=== PATIENT | female | born 1935 | race Caucasian/White ===

== ENCOUNTER 2017-01-09 15:50 | Inpatient (IN) | payer OTHER, MEDICAID ==
[2017-01-09] MEDS ORDERED: NS 1/2 1000 ML IV 1,000 ML IV ONE (17:26)
[2017-01-09] MEDS ORDERED: SALINE 3% 15 ML NEB TX ONE (17:51)
[2017-01-09 17:54] LABS: BASOPHILS # (AUTO) 0.1 X10^3/uL (0.0-0.1); BASOPHILS % (AUTO) 0.8 % (0.2-1.0); EOSINOPHILS # (AUTO) 0.3 x10^3/uL (0.0-0.2); EOSINOPHILS % (AUTO) 5.3 % (0.9-2.9); HEMOGLOBIN 10.4 g/dL (12.0-16.0); LYMPHOCYTES % (AUTO) 31.1 % (21.0-51.0); MEAN CORPUSCULAR HEMOGLOBIN 26.8 pg (27.0-34.0); MEAN CORPUSCULAR HGB CONC 32.5 g/dL (33.0-35.0); MEAN CORPUSCULAR VOLUME 82.4 fL (80.0-100.0); MEAN PLATELET VOLUME 9.6 fL (7.4-11.0); MONOCYTES # (AUTO) 0.7 x10^3/uL (0.3-0.8); MONOCYTES % (AUTO) 11.2 % (0.0-13.0); NEUTROPHILS # (AUTO) 3.4 x10^3/uL (2.2-4.8); NEUTROPHILS % (AUTO) 51.6 % (42.0-75.0); PLATELET COUNT 187 X10^3/uL (150.0-450.0); RED BLOOD COUNT 3.89 X10^6/uL (3.5-5.4); RED CELL DISTRIBUTION WIDTH 14.3 % (11.6-16.5); WHITE BLOOD COUNT 6.5 X10^3/uL (3.6-10.0)
[2017-01-09 18:00] VITALS: BMI 29.0
[2017-01-09] MEDS ORDERED: NS 1/2 1000 ML IV 1,000 ML IV SCH (18:00)
[2017-01-09 18:09] LABS: ALANINE AMINOTRANSFERASE 15 Units/L (12-78); ALBUMIN 3.4 g/dL (3.4-5.0); ALKALINE PHOSPHATASE 56 Units/L (46-116); ASPARTATE AMINO TRANSFERASE 15 Units/L (15-37); BLOOD UREA NITROGEN 25 mg/dL (7-18); CALCIUM 8.6 mg/dL (8.5-10.1); CARBON DIOXIDE 28.9 mmol/L (21-32); CHLORIDE 106 mmol/L (98-107); CREATININE 1.22 mg/dL (0.55-1.02); GLUCOSE 92 mg/dL (65-99); SODIUM 144 mmol/L (136-145); TOTAL PROTEIN 7.1 g/dL (6.4-8.2); eGFR BLACK RACES 55 (>60); eGFR NON BLACK RACES 45 (>60)
[2017-01-09] MEDS ORDERED: SALINE 3% 15 ML NEB TX NEB ONE (18:19)
[2017-01-09] MEDS: ROBITUSSIN DM PO SCH ×2 (18:35→21:15)
[2017-01-09] MEDS: NS 1/2 1000 ML IV 1,000 ML IV SCH (18:36)
[2017-01-09] MEDS: LEVAQUIN PREMIX IV 750 MG 750 MG/150 ML BAG IV SCH (18:36)
[2017-01-09] MEDS: LASIX IVP SCH (18:36)
[2017-01-09] MEDS: TUSSIONEX PENNKINETIC SUSP PO SCH (18:36)
--- NOTE | 2017-01-09 19:01 | RAD ---
History: Pneumonia Study: PA and lateral chest Comparison: December 24, 2015. Findings: There is mild cardiomegaly with a very tortuous ascending and descending thoracic aorta, s tatus post coronary artery bypass grafting surgery which is old. The costophrenic angles are mildly blunted. There is atelectasis and or consolidation in the right middle lobe. Impression: 1. Right middle lobe atelectasis and or consolidation 2. Cardiomegaly and a markedly tortuous aorta with small pleural effusions Reported By:
[2017-01-09] MEDS ORDERED: RESTORIL CAP 15 MG PO PRN (19:12)
[2017-01-09 20:21] LABS: BILIRUBIN,URINE NEGATIVE (NEGATIVE); BLOOD/HEMOGLOBIN,URINE NEGATIVE (NEGATIVE); GLUCOSE, URINE NEGATIVE (NEGATIVE); KETONES,URINE NEGATIVE (NEGATIVE); LEUKOCYTE ESTERASE ,URINE NEGATIVE (NEGATIVE); NITRITES,URINE NEGATIVE (NEGATIVE); PROTEIN,URINE NEGATIVE (NEGATIVE); UROBILINOGEN,URINE NORMAL (NORMAL)
[2017-01-09 20:32] LABS: APPEARANCE,URINE CLEAR (CLEAR); BACTERIA,URINE TRACE /HPF (NEGATIVE); COLOR,URINE PALE YELLOW (YELLOW); RBC,URINE 0-2 /HPF (NEGATIVE); SQUAMOUS EPITHELIAL CELL,UR RARE /HPF (NEGATIVE)
[2017-01-09 20:33] LABS: MUCUS,URINE RARE /HPF (NEGATIVE)
[2017-01-09] MEDS: COREG TAB 12.5 MG PO SCH (21:15)
[2017-01-09] MEDS: DIOVAN TAB 80 MG PO SCH (21:15)
[2017-01-09] MEDS: ZOCOR TAB 10 MG PO SCH (21:15)
[2017-01-09] MEDS: XOPENEX 1.25 MG/3 ML NEBULE NEB SCH (21:50)
[2017-01-10 05:30] LABS: ALANINE AMINOTRANSFERASE 13 Units/L (12-78); ALBUMIN 2.8 g/dL (3.4-5.0); ALKALINE PHOSPHATASE 49 Units/L (46-116); ASPARTATE AMINO TRANSFERASE 18 Units/L (15-37); BLOOD UREA NITROGEN 26 mg/dL (7-18); CALCIUM 8.3 mg/dL (8.5-10.1); CARBON DIOXIDE 28.5 mmol/L (21-32); CHLORIDE 106 mmol/L (98-107); COR CA(FOR HYPOALB) 9.3 mg/dL (8.5-10.1); GLUCOSE 84 mg/dL (65-99); SODIUM 142 mmol/L (136-145); TOTAL PROTEIN 6.3 g/dL (6.4-8.2); eGFR BLACK RACES 56 (>60); eGFR NON BLACK RACES 46 (>60)
[2017-01-10 05:37] LABS: BASOPHILS # (AUTO) 0.1 X10^3/uL (0.0-0.1); BASOPHILS % (AUTO) 0.7 % (0.2-1.0); EOSINOPHILS # (AUTO) 0.5 x10^3/uL (0.0-0.2); EOSINOPHILS % (AUTO) 6.8 % (0.9-2.9); HEMATOCRIT 29.2 % (36.0-47.0); HEMOGLOBIN 9.6 g/dL (12.0-16.0); LYMPHOCYTES # (AUTO) 2.5 X10^3/uL (1.3-2.9); LYMPHOCYTES % (AUTO) 34.9 % (21.0-51.0); MEAN CORPUSCULAR HEMOGLOBIN 27.4 pg (27.0-34.0); MEAN CORPUSCULAR HGB CONC 32.7 g/dL (33.0-35.0); MONOCYTES % (AUTO) 13.3 % (0.0-13.0); NEUTROPHILS # (AUTO) 3.2 x10^3/uL (2.2-4.8); NEUTROPHILS % (AUTO) 44.3 % (42.0-75.0); PLATELET COUNT 162 X10^3/uL (150.0-450.0); RED BLOOD COUNT 3.48 X10^6/uL (3.5-5.4); RED CELL DISTRIBUTION WIDTH 14.4 % (11.6-16.5)
[2017-01-10] MEDS: LASIX IVP SCH (05:54)
[2017-01-10] MEDS: TUSSIONEX PENNKINETIC SUSP PO SCH ×2 (05:54→18:27)
[2017-01-10 06:13] LABS: PLATELET MORPHOLOGY COMMENT NORMAL (NORMAL)
--- NOTE | 2017-01-10 06:48 | RAD ---
HISTORY: Follow up pneumonia Study: Chest one view Comparison: January 09, 2017 Findings: The patient is status post median sternotomy and CABG. The heart is enlarged. The aorta is ectatic. The lungs are generally hyperinflated and appear free of acute infiltrates. However it should be not ed that the atelectasis/consolidation visualized in the right middle lobe on the prior examination i s only visible on the lateral view. No pleural effusions are identified. The bony thorax is intact. IMPRESSION: Cardiomegaly without congestive heart failure No definite infiltrates identified however it should be noted that the right middle lobe process matias cribed on the prior examination is visualized only on the lateral view. Lateral view will be require d for comparison with the prior examination. Reported By:
[2017-01-10] MEDS: XOPENEX 1.25 MG/3 ML NEBULE NEB SCH ×4 (09:08→21:48)
[2017-01-10] MEDS: ASPIRIN EC 81 MG PO SCH (09:24)
[2017-01-10] MEDS: FOLIC ACID TAB 1 MG PO SCH (09:24)
[2017-01-10] MEDS: PLAVIX PO SCH (09:24)
[2017-01-10] MEDS: K-DUR TAB 20 MEQ PO SCH (09:25)
[2017-01-10] MEDS: COREG TAB 12.5 MG PO SCH ×2 (09:25→20:39)
[2017-01-10] MEDS: PROTONIX TAB 40 MG PO SCH (09:25)
[2017-01-10] MEDS: ROBITUSSIN DM PO SCH ×4 (09:26→20:40)
[2017-01-10] MEDS: DIOVAN TAB 80 MG PO SCH ×2 (09:26→20:39)
[2017-01-10] MEDS ORDERED: ANTIVERT TAB 25 MG PO PRN (09:49)
[2017-01-10] MEDS ORDERED: ANTIVERT TAB 25 MG PO ONE (09:50)
--- NOTE | 2017-01-10 14:07 | DR.UPDATE ---
H&P Update History and Physical Update: HISTORY AND PHYSICAL UPDATE FOR ADMISSION 01/09/17 MS. MERCADO'S H&P WAS COMPLETED IN OUR OFFICE PRIOR TO ADMISSION. SHE HAS BEEN SEEN AND EXAMINED WITH NO CHANGES NOTED.
--- NOTE | 2017-01-10 14:17 | PCM.PROG ---
Progress Note - Progress Note for Day of Date: 01/10/17 - Subjective Subjective: PATIENT RESTS IN BED AND REPORTS SHORTNESS OF BREATH IS SLIGHTLY IMPROVED TODAY. SHE CONTINUES ON SUPPLEMENTAL OXYGEN. SHE REPORTS A COUGH THAT IS NON-PRODUCTIVE, PERSISTENT. SHE REPORTS DIZZINESS AND NAUSEA THIS MORNING. CBC WNL EXCEPT: H/H 9.6/29.2. CMP WNL EXCEPT: BUN/CREAT 26/1.20, GFR 46, CALCIUM 8.3, TOT PROTEIN 6.3, ALBUMIN 2.8. URINALYSIS WNL. PA AND LAT CHEST XRAY YESTERDAY REPORTED RIGHT MIDDLE LOBE ATELECTASIS AND OR CONSOLIDATION ; CARDIOMEGALY AND A MARKEDLY TORTUOUS AORTA WITH SMALL PLEURAL EFFUSIONS. WE WILL CONTINUE WITH CURRENT TREATMENT, START MECLIZINE, AND FOLLOW UP WITH LABS AND PA AND LAT CHEST XRAY IN AM. - Past Medical Family Social History Past Med/Fam/Surg Hx: No changes since H&P Allergies: Allergies No Known Drug Allergy Allergy (Verified 03/30/16 11:12) - Review of Systems ROS: No change since H&P - Vital Signs and I&O's Vital Signs: Temperature 97.7 F Pulse Rate [Left Radial] 62 Pulse Rate 63 Respiratory Rate 19 Blood Pressure [Right Arm] 112/55 Blood Pressure [Left Arm] 141/45 Blood Pressure 112/55 O2 Sat by Pulse Oximetry 96 Intake and Output: Intake & Output 01/08/17 01/09/17 01/10/17 01/11/17 11:59 11:59 11:59 11:59 Intake Total 568 Output Total 600 Balance -32 - Physical Exam Oriented: Normal, Time, Person, Place Eyes: Normal. negative: Blurred Vision, Diplopia, Discharge, Pain, Redness, Photophobia Ear: Normal. negative: Swelling, Ecchymosis, Hemotypanum, Abrasion, Laceration Nose: Normal. negative: Injected, Discharge, Blood Throat: Red, Dry. negative: Tonsillar Hypertrophy, Exudate Respiratory: Generalized, Wheezes Cardiovascular: Normal. negative: Murmur, Edema : Normal. negative: Dysuria, Hematuria, Frequency, Discharge, Bleeding, Auscultation: Bowel Sounds: Decreased. negative: Bruit Palpation: Normal. negative: Spleen Enlarged, Liver Enlarged, Mass Pulsatile Tenderness: Normal. negative: Rebound, Guarding, Rigidity Skin: Normal. negative: Diaphoresis, Wound, Bruising, Ecchymosis Musculoskeletal: Instability Psychiatric: Normal Mood Description: Calm, Appropriate Affect: Normal Speech Pattern: Clear, Appropriate - Laboratory and Diagnostics Result Diagrams: 01/10/17 03:35 01/10/17 03:35 Labs: Laboratory WBC 8.0 X10^3/uL (3.6-10.0) 01/10/17 03:35 RBC 3.48 X10^6/uL (3.5-5.4) L 01/10/17 03:35 Hgb 9.6 g/dL (12.0-16.0) L 01/10/17 03:35 Hct 29.2 % (36.0-47.0) L 01/10/17 03:35 MCV 84.0 fL (80.0-100.0) 01/10/17 03:35 MCH 27.4 pg (27.0-34.0) 01/10/17 03:35 MCHC 32.7 g/dL (33.0-35.0) L 01/10/17 03:35 RDW 14.4 % (11.6-16.5) 01/10/17 03:35 Plt Count 162 X10^3/uL (150.0-450.0) 01/10/17 03:35 Plt Count Comment Adequate (ADEQUATE) 01/10/17 03:35 MPV 10.0 fL (7.4-11.0) 01/10/17 03:35 Neut % 44.3 % (42.0-75.0) 01/10/17 03:35 Lymph % 34.9 % (21.0-51.0) 01/10/17 03:35 [place] % 13.3 % (0.0-13.0) H 01/10/17 03:35 Eos % 6.8 % (0.9-2.9) H 01/10/17 03:35 Baso % 0.7 % (0.2-1.0) 01/10/17 03:35 Neut # 3.2 x10^3/uL (2.2-4.8) 01/10/17 03:35 Lymph # 2.5 X10^3/uL (1.3-2.9) 01/10/17 03:35 [place] # 1.0 x10^3/uL (0.3-0.8) H 01/10/17 03:35 Eos # 0.5 x10^3/uL (0.0-0.2) H 01/10/17 03:35 Baso # 0.1 X10^3/uL (0.0-0.1) 01/10/17 03:35 Absolute Nucleated RBC 0.1 /100WBC 01/10/17 03:35 Plt Morphology Comment Normal (NORMAL) 01/10/17 03:35 RBC Morphology Normal (NORMAL) 01/10/17 03:35 Sodium 142 mmol/L (136-145) 01/10/17 03:35 Corrected Sodium TNP 01/10/17 03:35 Potassium 4.1 mmol/L (3.5-5.1) 01/10/17 03:35 Chloride 106 mmol/L (98-107) 01/10/17 03:35 Carbon Dioxide 28.5 mmol/L (21-32) 01/10/17 03:35 BUN 26 mg/dL (7-18) H 01/10/17 03:35 Creatinine 1.20 mg/dL (0.55-1.02) H 01/10/17 03:35 Est GFR (MDRD) Af Amer 56 (>60) L 01/10/17 03:35 Est GFR (MDRD) Non-Af 46 (>60) L 01/10/17 03:35 Glucose 84 mg/dL (65-99) 01/10/17 03:35 Calcium 8.3 mg/dL (8.5-10.1) L 01/10/17 03:35 Corrected Calcium 9.3 mg/dL (8.5-10.1) 01/10/17 03:35 Total Bilirubin 0.50 mg/dL (0.2-1.0) 01/10/17 03:35 AST 18 Units/L (15-37) 01/10/17 03:35 ALT 13 Units/L (12-78) 01/10/17 03:35 Alkaline Phosphatase 49 Units/L (46-116) 01/10/17 03:35 Total Protein 6.3 g/dL (6.4-8.2) L 01/10/17 03:35 Albumin 2.8 g/dL (3.4-5.0) L 01/10/17 03:35 Globulin 3.5 g/dL (2.5-4.5) 01/10/17 03:35 Albumin/Globulin Ratio 0.8 Ratio (1.1-2.1) L 01/10/17 03:35 Specimen Type Catherized urine 01/09/17 20:09 Urine Color Pale yellow (YELLOW) 01/09/17 20:09 Urine Appearance Clear (CLEAR) 01/09/17 20:09 Urine pH 7.0 (5.0 - 8.0) 01/09/17 20:09 Ur Specific [place] 1.010 (1.000-1.030) 01/09/17 20:09 Urine Protein Negative (NEGATIVE) 01/09/17 20:09 Urine Glucose (UA) Negative (NEGATIVE) 01/09/17 20:09 Urine Ketones Negative (NEGATIVE) 01/09/17 20:09 Urine Occult Blood Negative (NEGATIVE) 01/09/17 20:09 Urine Nitrite Negative (NEGATIVE) 01/09/17 20:09 Urine Bilirubin Negative (NEGATIVE) 01/09/17 20:09 Urine Urobilinogen Normal (NORMAL) 01/09/17 20:09 Ur Leukocyte Esterase Negative (NEGATIVE) 01/09/17 20:09 Urine RBC 0-2 /HPF (NEGATIVE) 01/09/17 20:09 Urine WBC 2-4 /HPF (NEGATIVE) 01/09/17 20:09 Ur Squamous Epith Cells Rare /HPF (NEGATIVE) 01/09/17 20:09 Urine Bacteria Trace /HPF (NEGATIVE) 01/09/17 20:09 Urine Mucus Rare /HPF (NEGATIVE) 01/09/17 20:09 Ur Culture Indicated? No/not indicated 01/09/17 20:09 - Plan (1) CHF exacerbation Status: Acute Qualifiers: Congestive heart failure type: C Plan: STRICT I&O'S, FLUID RESTRICT TO LESS THAN 1000MLS IN 24H, DAILY WEIGHT, MONITOR CHEST XRAY. (2) Bronchopneumonia Status: Acute Plan: CONTINUE IV LEVAQUIN, NEB TREATMENTS, MONITOR LABS AND CHEST XRAY. (3) CAD (coronary artery disease) Status: Chronic Qualifiers: Coronary Disease-Associated Artery/Lesion type: C [place] vs. transplanted heart: N Associated angina: A (4) CHF (congestive heart failure) Status: Chronic Qualifiers: Congestive heart failure type: C Congestive heart failure chronicity: C (5) History of [place] (myocardial infarction) Status: Chronic (6) History of anemia Status: Chronic (7) History of aortic aneurysm Status: Chronic (8) History of coronary artery bypass graft Status: Chronic (9) History of coronary artery stent placement Status: Chronic (10) Hyperlipidemia Status: Chronic Qualifiers: Hyperlipidemia type: H (11) Hypertension Status: Chronic Qualifiers: Hypertension type: essential hypertension Qualified Code(s): I10 - Essential (primary) hypertension
[2017-01-10] MEDS ORDERED: ZOFRAN INJ 4 MG VIAL IVP PRN (14:18)
[2017-01-10] MEDS: LEVAQUIN PREMIX IV 750 MG 750 MG/150 ML BAG IV SCH (17:02)
[2017-01-10] MEDS: NS 1/2 1000 ML IV 1,000 ML IV SCH (17:03)
[2017-01-10] MEDS ORDERED: NS 1/2 1000 ML IV 1,000 ML IV ONE (17:05)
[2017-01-10] MEDS: ZOCOR TAB 10 MG PO SCH (20:40)
[2017-01-11] MEDS: XOPENEX 1.25 MG/3 ML NEBULE NEB SCH ×5 (02:17→20:30)
[2017-01-11 04:08] LABS: BASOPHILS # (AUTO) 0.1 X10^3/uL (0.0-0.1); BASOPHILS % (AUTO) 0.8 % (0.2-1.0); EOSINOPHILS # (AUTO) 0.5 x10^3/uL (0.0-0.2); HEMATOCRIT 31.1 % (36.0-47.0); HEMOGLOBIN 10.1 g/dL (12.0-16.0); LYMPHOCYTES # (AUTO) 1.7 X10^3/uL (1.3-2.9); LYMPHOCYTES % (AUTO) 26.6 % (21.0-51.0); MEAN CORPUSCULAR HEMOGLOBIN 27.1 pg (27.0-34.0); MEAN CORPUSCULAR HGB CONC 32.6 g/dL (33.0-35.0); MEAN CORPUSCULAR VOLUME 83.1 fL (80.0-100.0); MEAN PLATELET VOLUME 9.5 fL (7.4-11.0); MONOCYTES # (AUTO) 0.8 x10^3/uL (0.3-0.8); NEUTROPHILS # (AUTO) 3.3 x10^3/uL (2.2-4.8); NEUTROPHILS % (AUTO) 51.6 % (42.0-75.0); PLATELET COUNT 181 X10^3/uL (150.0-450.0); RED BLOOD COUNT 3.74 X10^6/uL (3.5-5.4); RED CELL DISTRIBUTION WIDTH 14.4 % (11.6-16.5); WHITE BLOOD COUNT 6.5 X10^3/uL (3.6-10.0)
[2017-01-11 04:20] LABS: ALBUMIN 2.8 g/dL (3.4-5.0); ALKALINE PHOSPHATASE 51 Units/L (46-116); ASPARTATE AMINO TRANSFERASE 14 Units/L (15-37); BLOOD UREA NITROGEN 22 mg/dL (7-18); CALCIUM 8.2 mg/dL (8.5-10.1); CARBON DIOXIDE 27.8 mmol/L (21-32); COR CA(FOR HYPOALB) 9.2 mg/dL (8.5-10.1); CREATININE 1.26 mg/dL (0.55-1.02); GLUCOSE 109 mg/dL (65-99); TOTAL PROTEIN 6.5 g/dL (6.4-8.2); eGFR BLACK RACES 53 (>60); eGFR NON BLACK RACES 44 (>60)
[2017-01-11 04:46] LABS: ALANINE AMINOTRANSFERASE 15 Units/L (12-78)
[2017-01-11 05:03] LABS: CHLORIDE 105 mmol/L (98-107); SODIUM 142 mmol/L (136-145)
[2017-01-11] MEDS ORDERED: MORPHINE SULFATE INJ 2 MG ONE (05:31)
[2017-01-11] MEDS ORDERED: LASIX IVP ONE (05:31)
[2017-01-11] MEDS ORDERED: MORPHINE SULFATE INJ 2 MG IVP PRN (05:46)
[2017-01-11] MEDS ORDERED: LASIX IVP SCH (06:00)
[2017-01-11] MEDS: TUSSIONEX PENNKINETIC SUSP PO SCH ×2 (06:04→21:26)
--- NOTE | 2017-01-11 07:13 | RAD ---
HISTORY: Pneumonia, CHF, cough Study: Two-view chest Comparison: January 10, 2017 Findings: Cardiac monitoring electrodes are noted on the chest. There is again evidence of CABG with median st ernotomy sutures and metallic markers indicating coronary artery bypass grafts. The trachea is midli ne. There is cardiomegaly with aortic uncoiling. On the lateral view there is again evidence of atel ectasis of the right middle lobe. There is some fullness present in the right hilar region which may be vascular or may indicate adenopathy or mass. CT evaluation of the chest is recommended. The maria fernanda jefe of lung morfin and pleural spaces are clear. Osseous structures display no acute abnormality. IMPRESSION: Persistent atelectasis involving the right middle lobe with a fullness in the right hilar region whi ch may be vascular or may indicate adenopathy or mass. CT evaluation of the chest is encouraged. Reported By:
[2017-01-11] MEDS: ROBITUSSIN DM PO SCH ×4 (08:00→21:24)
[2017-01-11] MEDS: PROTONIX TAB 40 MG PO SCH (08:01)
[2017-01-11] MEDS: COREG TAB 12.5 MG PO SCH ×2 (08:01→21:24)
[2017-01-11] MEDS: K-DUR TAB 20 MEQ PO SCH (08:01)
[2017-01-11] MEDS: PLAVIX PO SCH (08:02)
[2017-01-11] MEDS: ASPIRIN EC 81 MG PO SCH (08:02)
[2017-01-11] MEDS: FOLIC ACID TAB 1 MG PO SCH (08:03)
[2017-01-11] MEDS: DIOVAN TAB 80 MG PO SCH ×2 (08:03→21:24)
[2017-01-11] MEDS ORDERED: PREDNISONE TAB 10 MG PO ONE (09:19)
[2017-01-11] MEDS ORDERED: PREDNISONE TAB 10 MG PO PRN (09:26)
[2017-01-11] MEDS: PREDNISONE TAB 5 MG PO SCH (11:42)
[2017-01-11] MEDS: SOLU-Medrol 40 MG VIAL IVP SCH ×4 (11:42→21:25)
[2017-01-11] MEDS: PROTONIX INJ 40 MG VIAL IVP SCH (11:42)
[2017-01-11] MEDS: PEPCID 20 MG IV PREMIX* 20 MG/50 ML BAG IV SCH ×2 (11:42→21:24)
--- NOTE | 2017-01-11 12:04 | PCM.PROG ---
Progress Note - Progress Note for Day of Date: 01/11/17 - Subjective Subjective: PATIENT RESTS IN BED AND REPORTS SHORTNESS OF BREATH. PATIENT HAD AN EPISODE OF RESPIRATORY DISTRESS EARLY THIS MORNING. AUDIBLE WHEEZING WAS NOTED AND AUSCULTATED BILATERALLY. PATIENT RECEIVED A STAT DOSE OF LASIX 40MG IV AND WILL RECEIVE ANOTHER DOSE TODAY. SHE CONTINUES ON SUPPLEMENTAL OXYGEN. SHE REPORTS A COUGH THAT IS NON-PRODUCTIVE, PERSISTENT. SHE REPORTS DIZZINESS AND NAUSEA THIS MORNING AFTER RECEIVING MORPHINE. WE WILL LIST MORPHINE AN ALLERGY. CBC WNL EXCEPT: H/H 10.1/31.1. CMP WNL EXCEPT: BUN/CREAT 22/.26, GFR 44, CALCIUM 8.2, ALBUMIN 2.8. URINALYSIS WNL. CHEST XRAY TODAY REPORTED PERSISTENT RIGHT MIDDLE LOBE ATELECTASIS. CHEST XRAY RECOMMENDS CHEST CT. WE WILL ORDER CT AND FOLLOW UP IN AM. WE WILL CONTINUE WITH CURRENT TREATMENT, CONTINUE MECLIZINE, AND FOLLOW UP WITH LABS IN AM. - Past Medical Family Social History Past Med/Fam/Surg Hx: No changes since H&P Allergies: Allergies Morphine Allergy (Verified 01/11/17 09:12) - Review of Systems ROS: No change since H&P - Vital Signs and I&O's Vital Signs: Temperature 97.9 F Pulse Rate [Left Radial] 71 Pulse Rate 83 Respiratory Rate 22 Blood Pressure [Right Arm] 112/55 Blood Pressure [Left Arm] 131/53 Blood Pressure 112/55 O2 Sat by Pulse Oximetry 94 Intake and Output: Intake & Output 01/08/17 01/09/17 01/10/17 01/11/17 11:59 11:59 11:59 11:59 Intake Total 568 1501 Output Total 600 2500 Balance -32 -999 - Physical Exam Oriented: Normal, Time, Person, Place Eyes: Normal. negative: Blurred Vision, Diplopia, Discharge, Pain, Redness, Photophobia Ear: Normal. negative: Swelling, Ecchymosis, Hemotypanum, Abrasion, Laceration Nose: Normal. negative: Injected, Discharge, Blood Throat: Red, Dry. negative: Tonsillar Hypertrophy, Exudate Respiratory: Generalized, Wheezes Cardiovascular: Normal. negative: Murmur, Edema : Normal. negative: Dysuria, Hematuria, Frequency, Discharge, Bleeding, Auscultation: Bowel Sounds: Decreased. negative: Bruit Palpation: Normal. negative: Spleen Enlarged, Liver Enlarged, Mass Pulsatile Tenderness: Normal. negative: Rebound, Guarding, Rigidity Skin: Normal. negative: Diaphoresis, Wound, Bruising, Ecchymosis Musculoskeletal: Instability Psychiatric: Normal Mood Description: Calm, Appropriate Affect: Normal Speech Pattern: Clear - Laboratory and Diagnostics Result Diagrams: 01/11/17 03:15 01/11/17 03:15 Labs: 01/09/17 17:41 Blood Blood Culture - Preliminary 01/09/17 17:41 Blood Blood Culture - Preliminary 01/11/17 01:30 Sputum - Expectorated Sputum - Final Laboratory WBC 6.5 X10^3/uL (3.6-10.0) 01/11/17 03:15 RBC 3.74 X10^6/uL (3.5-5.4) 01/11/17 03:15 Hgb 10.1 g/dL (12.0-16.0) L 01/11/17 03:15 Hct 31.1 % (36.0-47.0) L 01/11/17 03:15 MCV 83.1 fL (80.0-100.0) 01/11/17 03:15 MCH 27.1 pg (27.0-34.0) 01/11/17 03:15 MCHC 32.6 g/dL (33.0-35.0) L 01/11/17 03:15 RDW 14.4 % (11.6-16.5) 01/11/17 03:15 Plt Count 181 X10^3/uL (150.0-450.0) 01/11/17 03:15 Plt Count Comment Adequate (ADEQUATE) 01/10/17 03:35 MPV 9.5 fL (7.4-11.0) 01/11/17 03:15 Neut % 51.6 % (42.0-75.0) 01/11/17 03:15 Lymph % 26.6 % (21.0-51.0) 01/11/17 03:15 [place] % 13.0 % (0.0-13.0) 01/11/17 03:15 Eos % 8.0 % (0.9-2.9) H 01/11/17 03:15 Baso % 0.8 % (0.2-1.0) 01/11/17 03:15 Neut # 3.3 x10^3/uL (2.2-4.8) 01/11/17 03:15 Lymph # 1.7 X10^3/uL (1.3-2.9) 01/11/17 03:15 [place] # 0.8 x10^3/uL (0.3-0.8) 01/11/17 03:15 Eos # 0.5 x10^3/uL (0.0-0.2) H 01/11/17 03:15 Baso # 0.1 X10^3/uL (0.0-0.1) 01/11/17 03:15 Absolute Nucleated RBC 0.1 /100WBC 01/11/17 03:15 Plt Morphology Comment Normal (NORMAL) 01/10/17 03:35 RBC Morphology Normal (NORMAL) 01/10/17 03:35 Sodium 142 mmol/L (136-145) 01/11/17 03:15 Corrected Sodium TNP 01/11/17 03:15 Potassium 4.0 mmol/L (3.5-5.1) 01/11/17 03:15 Chloride 105 mmol/L (98-107) 01/11/17 03:15 Carbon Dioxide 27.8 mmol/L (21-32) 01/11/17 03:15 BUN 22 mg/dL (7-18) H 01/11/17 03:15 Creatinine 1.26 mg/dL (0.55-1.02) H 01/11/17 03:15 Est GFR (MDRD) Af Amer 53 (>60) L 01/11/17 03:15 Est GFR (MDRD) Non-Af 44 (>60) L 01/11/17 03:15 Glucose 109 mg/dL (65-99) H 01/11/17 03:15 Calcium 8.2 mg/dL (8.5-10.1) L 01/11/17 03:15 Corrected Calcium 9.2 mg/dL (8.5-10.1) 01/11/17 03:15 Total Bilirubin 0.30 mg/dL (0.2-1.0) 01/11/17 03:15 AST 14 Units/L (15-37) L 01/11/17 03:15 ALT 15 Units/L (12-78) 01/11/17 03:15 Alkaline Phosphatase 51 Units/L (46-116) 01/11/17 03:15 Total Protein 6.5 g/dL (6.4-8.2) 01/11/17 03:15 Albumin 2.8 g/dL (3.4-5.0) L 01/11/17 03:15 Globulin 3.7 g/dL (2.5-4.5) 01/11/17 03:15 Albumin/Globulin Ratio 0.8 Ratio (1.1-2.1) L 01/11/17 03:15 Specimen Type Catherized urine 01/09/17 20:09 Urine Color Pale yellow (YELLOW) 01/09/17 20:09 Urine Appearance Clear (CLEAR) 01/09/17 20:09 Urine pH 7.0 (5.0 - 8.0) 01/09/17 20:09 Ur Specific [place] 1.010 (1.000-1.030) 01/09/17 20:09 Urine Protein Negative (NEGATIVE) 01/09/17 20:09 Urine Glucose (UA) Negative (NEGATIVE) 01/09/17 20:09 Urine Ketones Negative (NEGATIVE) 01/09/17 20:09 Urine Occult Blood Negative (NEGATIVE) 01/09/17 20:09 Urine Nitrite Negative (NEGATIVE) 01/09/17 20:09 Urine Bilirubin Negative (NEGATIVE) 01/09/17 20:09 Urine Urobilinogen Normal (NORMAL) 01/09/17 20:09 Ur Leukocyte Esterase Negative (NEGATIVE) 01/09/17 20:09 Urine RBC 0-2 /HPF (NEGATIVE) 01/09/17 20:09 Urine WBC 2-4 /HPF (NEGATIVE) 01/09/17 20:09 Ur Squamous Epith Cells Rare /HPF (NEGATIVE) 01/09/17 20:09 Urine Bacteria Trace /HPF (NEGATIVE) 01/09/17 20:09 Urine Mucus Rare /HPF (NEGATIVE) 01/09/17 20:09 Ur Culture Indicated? No/not indicated 01/09/17 20:09 - Plan (1) CHF exacerbation Status: Acute Qualifiers: Congestive heart failure type: C Plan: CONTINUE LASIX IV, STRICT I&O'S, FLUID RESTRICT TO LESS THAN 1000MLS IN 24H, DAILY WEIGHT, MONITOR CHEST XRAY. CHECK CHEST CT AND ECHO TODAY. (2) Bronchopneumonia Status: Acute Plan: CONTINUE IV LEVAQUIN, NEB TREATMENTS, START SOLU-MEDROL, MONITOR LABS AND CHEST XRAY. (3) CAD (coronary artery disease) Status: Chronic Qualifiers: Coronary Disease-Associated Artery/Lesion type: C [place] vs. transplanted heart: N Associated angina: A (4) CHF (congestive heart failure) Status: Chronic Qualifiers: Congestive heart failure type: C Congestive heart failure chronicity: C (5) History of [place] (myocardial infarction) Status: Chronic (6) History of anemia Status: Chronic (7) History of aortic aneurysm Status: Chronic (8) History of coronary artery bypass graft Status: Chronic (9) History of coronary artery stent placement Status: Chronic (10) Hyperlipidemia Status: Chronic Qualifiers: Hyperlipidemia type: H (11) Hypertension Status: Chronic Qualifiers: Hypertension type: essential hypertension Qualified Code(s): I10 - Essential (primary) hypertension
--- NOTE | 2017-01-11 14:47 | CT ---
History: Shortness of breath and abnormal chest x-ray. Study: Multi shutdown planner CT thorax without IV contrast Comparison: CT examination of December 2015 Findings:There is new thickening of the major fissure diffusely, of low attenuation, measuring up to 1 centimeter maximum thickness. The lungs are clear. The ascending aorta is dilated up to 7 centime ters diameter there is calcification of the aortic valve. Prior CT showed old dissection of the asce nding aorta. There is a small dependent right pleural effusion. The upper abdomen is unremarkable. T he lungs are clear. There is heavy coronary artery calcification. There is a 1.7 centimeter retrocav al precarinal lymph node. There are prominent lymph nodes lateral to the aortic arch. Impression: 1. Small right pleural effusion with fluid in the mid right major fissure 2. 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 Calcification of the aortic valve and heavy coronary artery calcification Reported By:
[2017-01-11] MEDS: LEVAQUIN PREMIX IV 750 MG 750 MG/150 ML BAG IV SCH (17:15)
[2017-01-11] MEDS: ZOCOR TAB 10 MG PO SCH (21:24)
[2017-01-11] MEDS: COLACE CAP 100 MG PO PRN (21:27)
[2017-01-12 05:31] LABS: BASOPHILS % (AUTO) 0.1 % (0.2-1.0); HEMATOCRIT 32.6 % (36.0-47.0); HEMOGLOBIN 10.6 g/dL (12.0-16.0); LYMPHOCYTES # (AUTO) 0.8 X10^3/uL (1.3-2.9); LYMPHOCYTES % (AUTO) 15.8 % (21.0-51.0); MEAN CORPUSCULAR HEMOGLOBIN 26.8 pg (27.0-34.0); MEAN CORPUSCULAR HGB CONC 32.6 g/dL (33.0-35.0); MEAN CORPUSCULAR VOLUME 82.3 fL (80.0-100.0); MEAN PLATELET VOLUME 9.2 fL (7.4-11.0); MONOCYTES # (AUTO) 0.1 x10^3/uL (0.3-0.8); MONOCYTES % (AUTO) 1.8 % (0.0-13.0); NEUTROPHILS # (AUTO) 4.1 x10^3/uL (2.2-4.8); NEUTROPHILS % (AUTO) 82.3 % (42.0-75.0); PLATELET COUNT 205 X10^3/uL (150.0-450.0); RED BLOOD COUNT 3.96 X10^6/uL (3.5-5.4); WHITE BLOOD COUNT 4.9 X10^3/uL (3.6-10.0)
[2017-01-12 05:52] LABS: ALANINE AMINOTRANSFERASE 13 Units/L (12-78); ALBUMIN 2.9 g/dL (3.4-5.0); ALKALINE PHOSPHATASE 51 Units/L (46-116); ASPARTATE AMINO TRANSFERASE 12 Units/L (15-37); BLOOD UREA NITROGEN 26 mg/dL (7-18); CALCIUM 8.8 mg/dL (8.5-10.1); CARBON DIOXIDE 26.6 mmol/L (21-32); CHLORIDE 103 mmol/L (98-107); COR CA(FOR HYPOALB) 9.7 mg/dL (8.5-10.1); COR NA(FOR HYPERGLY) 140 mmol/L (136-145); CREATININE 1.08 mg/dL (0.55-1.02); GLUCOSE 156 mg/dL (65-99); SODIUM 139 mmol/L (136-145); TOTAL PROTEIN 6.8 g/dL (6.4-8.2); eGFR BLACK RACES > 60 (>60); eGFR NON BLACK RACES 52 (>60)
[2017-01-12] MEDS: TUSSIONEX PENNKINETIC SUSP PO SCH ×2 (05:57→18:14)
[2017-01-12] MEDS: SOLU-Medrol 40 MG VIAL IVP SCH ×3 (05:57→22:46)
--- NOTE | 2017-01-12 07:22 | RAD ---
HISTORY: Pneumonia, cough, congestion. Study: Single-view chest, done portably Comparison: January 11, 2017 Findings: Cardiac monitoring electrodes are noted on the chest. There again seen to be changes of CABG with me ronit sternotomy sutures and metallic markers indicating coronary artery bypass grafts. The trachea i s midline. There is cardiomegaly with aortic uncoiling. Improved aeration is seen with reduction and interstitial densities bilaterally. No consolidation is seen. Osseous structures are intact IMPRESSION: Improved aeration bilaterally. Hypertensive configuration with changes of CABG. Reported By:
[2017-01-12] MEDS: XOPENEX 1.25 MG/3 ML NEBULE NEB SCH ×4 (08:31→20:38)
[2017-01-12] MEDS: PROTONIX INJ 40 MG VIAL IVP SCH (08:56)
[2017-01-12] MEDS: PEPCID 20 MG IV PREMIX* 20 MG/50 ML BAG IV SCH ×2 (08:56→22:46)
[2017-01-12] MEDS: FOLIC ACID TAB 1 MG PO SCH (08:57)
[2017-01-12] MEDS: ASPIRIN EC 81 MG PO SCH (08:57)
[2017-01-12] MEDS: PREDNISONE TAB 5 MG PO SCH (08:57)
[2017-01-12] MEDS: COLACE CAP 100 MG PO PRN (08:57)
[2017-01-12] MEDS: ROBITUSSIN DM PO SCH ×4 (08:57→22:43)
[2017-01-12] MEDS: DIOVAN TAB 80 MG PO SCH ×2 (08:58→22:40)
[2017-01-12] MEDS: K-DUR TAB 20 MEQ PO SCH (08:58)
[2017-01-12] MEDS: COREG TAB 12.5 MG PO SCH ×2 (09:01→22:41)
[2017-01-12] MEDS: LEVAQUIN PREMIX IV 750 MG 750 MG/150 ML BAG IV SCH (18:13)
[2017-01-12] MEDS: ZOCOR TAB 10 MG PO SCH (22:41)
--- NOTE | 2017-01-13 06:07 | RAD ---
HISTORY: Pneumonia, cough, congestion Study: Chest one view Comparison: January 12, 2017 Findings: The patient is status post median sternotomy. The enlarged. No congestive heart failure is noted. No acute alveolar infiltrates or pleural effusions are identified. The bony thorax is unremarkable. IMPRESSION: Cardiomegaly without congestive heart failure No infiltrates Reported By:
[2017-01-13] MEDS: SOLU-Medrol 40 MG VIAL IVP SCH (06:09)
[2017-01-13] MEDS: TUSSIONEX PENNKINETIC SUSP PO SCH (06:10)
[2017-01-13 06:21] LABS: BASOPHILS % (AUTO) 0.1 % (0.2-1.0); HEMATOCRIT 30.8 % (36.0-47.0); HEMOGLOBIN 10.2 g/dL (12.0-16.0); LYMPHOCYTES # (AUTO) 0.9 X10^3/uL (1.3-2.9); MEAN CORPUSCULAR HEMOGLOBIN 27.1 pg (27.0-34.0); MEAN CORPUSCULAR HGB CONC 32.9 g/dL (33.0-35.0); MEAN CORPUSCULAR VOLUME 82.2 fL (80.0-100.0); MEAN PLATELET VOLUME 9.7 fL (7.4-11.0); MONOCYTES # (AUTO) 0.6 x10^3/uL (0.3-0.8); MONOCYTES % (AUTO) 4.9 % (0.0-13.0); NEUTROPHILS # (AUTO) 10.9 x10^3/uL (2.2-4.8); PLATELET COUNT 209 X10^3/uL (150.0-450.0); RED BLOOD COUNT 3.75 X10^6/uL (3.5-5.4); RED CELL DISTRIBUTION WIDTH 13.9 % (11.6-16.5); WHITE BLOOD COUNT 12.4 X10^3/uL (3.6-10.0)
[2017-01-13 06:26] LABS: ALBUMIN 2.9 g/dL (3.4-5.0); CALCIUM 8.5 mg/dL (8.5-10.1); CARBON DIOXIDE 26.4 mmol/L (21-32); COR CA(FOR HYPOALB) 9.4 mg/dL (8.5-10.1); CREATININE 1.23 mg/dL (0.55-1.02); TOTAL PROTEIN 6.5 g/dL (6.4-8.2)
[2017-01-13 08:09] VITALS: BP 140/65
[2017-01-13] MEDS: XOPENEX 1.25 MG/3 ML NEBULE NEB SCH (09:18)
[2017-01-13] MEDS: PEPCID 20 MG IV PREMIX* 20 MG/50 ML BAG IV SCH (09:34)
[2017-01-13] MEDS: PROTONIX INJ 40 MG VIAL IVP SCH (09:35)
[2017-01-13] MEDS: ROBITUSSIN DM PO SCH (09:36)
[2017-01-13] MEDS: PREDNISONE TAB 5 MG PO SCH (09:37)
[2017-01-13] MEDS: ASPIRIN EC 81 MG PO SCH (09:37)
[2017-01-13] MEDS: DIOVAN TAB 80 MG PO SCH (09:37)
[2017-01-13] MEDS: COREG TAB 12.5 MG PO SCH (09:37)
[2017-01-13] MEDS: PLAVIX PO SCH (09:37)
[2017-01-13] MEDS: FOLIC ACID TAB 1 MG PO SCH (09:37)
[2017-01-13] MEDS: K-DUR TAB 20 MEQ PO SCH (09:37)
== END 2017-01-13 10:58 | disposition home or self-care (01) | DRG 291 ==
LOC: ICU 15:50 → OBSVTOIN 01-11 09:00
PROVIDERS: ADMIT Internal Medicine; ATTEND Internal Medicine
DX: I50.9 Heart failure, unspecified (principal); J18.0 Bronchopneumonia, unspecified organism; J90 Pleural effusion, not elsewhere classified; J98.11 Atelectasis; R07.89 Other chest pain; R06.02 Shortness of breath; I51.7 Cardiomegaly; I25.10 Atherosclerotic heart disease of native coronary artery without angina pectoris; E78.2 Mixed hyperlipidemia; I10 Essential (primary) hypertension; I25.2 Old myocardial infarction; Z86.79 Personal history of other diseases of the circulatory system; Z95.5 Presence of coronary angioplasty implant and graft
CPT/HCPCS: 36415; 71010; 71020; 71250; 80053; 81001; 85025; 87040; 87070; 87205; 93306; 94640; A4222; C9113; S0028; G0378; J1940; J1956; J2270; J2920; J7506